=== PATIENT | female | born 1955 | race Caucasian/White ===

== ENCOUNTER 2017-05-01 09:28 | Day surgery (SDC) | payer BC ==
[2017-05-01] MEDS ORDERED: LIDOCAINE 2% MDV (20MG/ML) 20ML VIAL IV ONE (09:29)
[2017-05-01] MEDS ORDERED: PROPOFOL 10 MG/ML VIAL IV ONE (09:29)
[2017-05-01] MEDS ORDERED: MIDAZOLAM HCL 2MG/2ML VIAL IV ONE (09:29)
--- NOTE | 2017-05-01 13:10 | Operative Note ---
DATE OF SURGERY: 05/01/2017 OPERATION: COLONOSCOPY with cold snare and cold forceps polypectomies, and hemoclip application. PREOPERATIVE DIAGNOSIS: Screening. POSTOPERATIVE DIAGNOSES: 1. [id number] sigmoid diverticulosis. 2. Hemorrhoids. 3. Colon polyps. PROCEDURE: After informed consent was obtained from the patient, she was placed in the left lateral decubitus position in the endoscopy suite, sedated and monitored by the department of anesthesia. Digital rectal exam revealed external hemorrhoids that were non-thrombosed. A well-lubricated [id number] colonoscope was inserted into the rectum and gently advanced through a severely tortuous sigmoid colon which demonstrated nfhuxoyi-[id number] diverticular changes. The colonoscope was then gently advanced requiring transabdominal pressure to intubate the cecal cap. The cecum was unremarkable. Preparation quality was good. The ileocecal valve and appendiceal orifice were identified. In the ascending colon, there were 2 polyps, one 5 mm in diameter quite sessile removed with a cold snare, and hemoclip was applied to the site for closure purposes. There was another 6-7 mm sessile polyp removed in piecemeal fashion with a cold snare. Minimal bleeding was noted at the site. Polyp was retrieved without incident. The remainder of the ascending colon, transverse colon, descending colon were unremarkable. The sigmoid colon revealed a 4 mm polyp which was partially removed with a cold forceps and removed with a cold snare as well. The remainder of the sigmoid colon again demonstrated diverticular changes. J-turn views of the anorectum revealed internal hemorrhoids. The endoscope was straightened, the rectal ampulla deflated, and the endoscope was removed. RECOMMENDATIONS: I would suggest the patient follow a high-fiber diet and use a fiber supplement. She will require repeat exam in 3-5 years pending tissue histology. As always, thank you for allowing me to participate in the healthcare of your patients. CC: KANDIS OSUNA MD, FACP MTDD
== END 2017-05-01 10:50 | disposition home or self-care (01) ==
LOC: HOP 09:28
PROVIDERS: ATTEND Internal Medicine Gastroenterology
DX: Z12.11 Encounter for screening for malignant neoplasm of colon (principal); D12.2 Benign neoplasm of ascending colon; D12.5 Benign neoplasm of sigmoid colon; K57.30 Diverticulosis of large intestine without perforation or abscess without bleeding

== ENCOUNTER 2018-04-29 21:24 | Emergency (ER) | payer BC ==
--- NOTE | 2018-04-29 22:07 | Emergency Department Record ---
History of Present Illness - General Chief Complaint: Abdominal Pain Stated Complaint: FLANK/ABDOMINAL PAIN Time Seen by Provider: 04/29/18 22:06 Source: Patient Mode of Arrival: Ambulatory Limitations: No limitations - History of Present Illness Initial Comments: 62 yo female presents with abdominal pain. The onset was four days ago. She has decreased appetite. No vomiting or diarrhea. No dysuria. No back pain. She reports a history of prior colon infection. Her last colonoscopy was last year. It demonstrated moderate diverticulosis. Dr Medellin is her doctor. The pain is fairly constant and is located mostly in the lower abdomen. No back radiation. She reports, additionally, a vaginal discharge without bleeding that started today. MD Complaint: Abdominal pain Onset/Timin -: Days(s) Location: LLQ, RLQ Radiation: Back Migration to: Suprapubic Severity: Moderate Severity scale (1-10): 5 Quality: Cramping, Stabbing Consistency: Intermittent Improves With: Nothing Worsens With: Eating Associated Symptoms: Anorexia - Related Data LMP (females 10-50): Unknown Patient : No Previous Rx's Medication Instructions Recorded Ciprofloxacin HCl [Cipro] 500 mg PO Q12HR #14 tablet 04/30/18 Metronidazole [Flagyl] 500 mg PO TID #21 tablet 04/30/18 Allergies Allergy/AdvReac Type Severity Reaction Status Date / Time No Known Drug Allergies Allergy Verified 04/29/18 21:35 Travel Screening - Travel/Exposure Within Last 30 Days Have you traveled within the last 30 days?: No - Travel Symptoms Symptom Screening: None Review of Systems Constitutional: Denies: Chills, Fever, Malaise, Weakness Eyes: Denies: Eye discharge ENT: Denies: Congestion, Throat pain Respiratory: Denies: Cough, Dyspnea, Hemoptysis, Wheezes Cardiovascular: Denies: Chest pain, Palpitations, Syncope Endocrine: Denies: Fatigue, Polydipsia, Polyuria Gastrointestinal: Reports: Abdominal pain, Nausea. Denies: Constipation, Diarrhea, Hematemesis, Hematochezia Genitourinary: Denies: Dysuria, Frequency, Hematuria Musculoskeletal: Denies: Arthralgia, Back pain, Neck pain Skin: Denies: Bruising, Change in color, Rash Neurological: Denies: Headache Psychiatric: Denies: Anxiety Hematological/Lymphatic: Denies: Easy bleeding, Easy bruising Past Medical History - SOCIAL HISTORY Smoking Status: Current every day smoker Alcohol Use: Occasional Drug Use: None - RESPIRATORY Hx Respiratory Disorders: No - CARDIOVASCULAR Hx Cardio Disorders: Yes Comment:: high cholesterol - NEURO Hx Neuro Disorders: No - GI Hx GI Disorders: No - Hx Genitourinary Disorders: Yes Hx Kidney Stones: Yes - ENDOCRINE Hx Endocrine Disorders: No - MUSCULOSKELETAL Hx Musculoskeletal Disorders: No - PSYCH Hx Psych Problems: No - HEMATOLOGY/ONCOLOGY Hx Hematology/Oncology Disorders: No Family Medical History Any Significant Family History?: Yes Hx Diabetes: Mother Hx Heart Disease: Father Physical Exam - General General Appearance: Alert, Oriented x3, Cooperative, No acute distress Limitations: No limitations - Head Head exam: Atraumatic, Normal inspection - Eye Eye exam: Normal appearance, PERRL. negative: Conjunctival injection, Scleral icterus - ENT ENT exam: Normal exam, Mucous membranes moist, Normal orophraynx Ear exam: Normal external inspection Nasal Exam: Normal inspection Mouth exam: Normal external inspection Teeth exam: Normal inspection Throat exam: Normal inspection - Neck Neck exam: Normal inspection - Respiratory Respiratory exam: Normal lung sounds bilaterally. negative: Accessory muscle use, Decreased breath sounds, Respiratory distress, Rhonchi, Stridor, Wheezes - Cardiovascular Cardiovascular Exam: Regular rate, Normal rhythm, Normal heart sounds - GI/Abdominal GI/Abdominal exam: Soft, Tenderness - Rectal Rectal exam: Deferred - exam: Vaginal discharge (thin light soriano discharge). negative: Abnormal external exam, Adnexal tenderness (L), Adnexal tenderness (R), Cervical discharge, cervical motion tenderness, Vaginal bleeding, Vaginal erythema - Extremities Extremities exam: Normal inspection, Full ROM, Normal capillary refill. negative: Tenderness - Back Back exam: Denies: CVA tenderness (R), CVA tenderness (L) - Neurological Neurological exam: Alert, Oriented X3. negative: Normal gait - Psychiatric Psychiatric exam: Normal affect, Normal mood. negative: Agitated, Anxious - Skin Skin exam: Dry, Intact, Normal color, Warm Course Vital Signs 04/29/18 21:38 Temperature 97.6 F Pulse Rate [ 96 H Pulse Ox Probe] Respiratory 16 Rate Blood Pressure 166/105 [Left Arm] Pulse Ox 96 - Reevaluation(s) Reevaluation #1: 04/29/18 23:00 The CBC was negative The CMP was without significant abnormalities The Lipase is normal The UA has trace LE, few WBC, and few bacteria. 04/29/18 23:43 WBC noted on the wet prep 04/30/18 00:[address] is pending The patient declined pain medication waiting for CT results. 04/30/18 00:54 The radiologist called. The patient has acute diverticulitis with likely fistula between the colon and the vagina. 04/30/18 01:11 The case was discussed with Dr Olson of general surgery. The CT, labs, and clinical condition were discussed. The patient clinically has very mild symptoms, she is eating and drinking, her pain does not require any intervention. He recommended follow up in the office or Friday. She will be discharged home on Cipro and Flagyl. She was sent with a copy of her CT scan. We discussed at length reason to return to the ED immediately for a recheck Medical Decision Making - Lab Data Result diagrams: 04/29/18 21:53 04/29/18 21:53 Disposition Disposition: Discharge Clinical Impression: Diverticulitis, Recto-vaginal fistula Disposition: Home, Self-Care Condition: (1) Good Instructions: Diverticulitis (ED) Additional Instructions: Call Dr Olson for the next available follow up appointment on or Friday Return to the ER for a recheck if worse, any new concerns or questions Take the prescriptions provided as directed Review this ER visit and the tests performed with your family doctor Prescriptions: Ciprofloxacin HCl [Cipro] 500 mg PO Q12HR #14 tablet Metronidazole [Flagyl] 500 mg PO TID #21 tablet Referrals: Philip Olson [DOCTOR OF OSTEOPATH] - [facility] [Provider Group] Forms: Patient Portal Access Time of Disposition: 00:56 Quality - Quality Measures Quality Measures: N/A - Blood Pressure Screening Does Patient Have Any of the Following: No Blood Pressure Classification: Hypertensive Reading Systolic Measurement: 152 Diastolic Measurement: 79 Screening for High Blood Pressure: < Pre-Hypertensive BP, F/U Documented > [ [id number]] Pre-Hypertensive Follow-up Interventions: Referral to alternative/primary care provider.
[2018-04-29] MEDS ORDERED: ONDANSETRON HCL IV 4 MG/2 ML VIAL IVP ONE (22:12)
[2018-04-29] MEDS ORDERED: 0.9 % SODIUM CHLORIDE 1,000 ML BAG IV ONE (22:12)
[2018-04-29 22:21] LABS: URINE APPEARANCE CLEAR; URINE BILIRUBIN NEGATIVE (NEGATIVE); URINE BLOOD NEGATIVE (NEGATIVE); URINE COLOR YELLOW; URINE GLUCOSE (UA) NEGATIVE (NEGATIVE); URINE KETONE NEGATIVE (NEGATIVE); URINE LEUKOCYTE ESTERASE SMALL (NEGATIVE); URINE NITRITE NEGATIVE (NEGATIVE); URINE PROTEIN NEGATIVE (NEGATIVE); URINE UROBILINOGEN 0.2 E.U./dL (0.20 - 1.00)
[2018-04-29 22:22] LABS: BASO % 0.6 % (0-6); EOS % 3.4 % (0-6); GRAN % 58.2 % (47-80); HEMOGLOBIN 14.6 gm/dl (11.6-16.0); LYMPH % 26.8 % (16-45); MEAN CELL VOLUME 91.9 fl (81-97); MEAN CORPUSCULAR HEMOGLOBIN 30.5 pg (27-33); MEAN CORPUSCULAR HGB CONC 33.2 g/dl (32-36); MEAN PLATELET VOLUME 8.3 fl (7.4-10.4); PLATELET COUNT 455 K/uL (130-400); RED BLOOD COUNT 4.79 M/uL (3.80-5.40); RED CELL DISTRIBUTION WIDTH 13.1 % (11.5-14.5); WHITE BLOOD COUNT W/O DIFF 6.7 K/uL (4.2-12.2)
[2018-04-29 22:31] LABS: URINE BACTERIA FEW; URINE EPITHELIAL CELLS 0 - 2 (FEW); URINE RBC 0 - 2 (NONE SEEN)
[2018-04-29 22:33] LABS: BLOOD UREA NITROGEN 8 mg/dL (8-23); CREATININE 0.5 mg/dL (0.5-0.9); EST GLOMERULAR FILTRATION RATE > 60 mL/min
[2018-04-29 22:34] LABS: LIPASE 14 U/L (13-60); TOTAL PROTEIN 7.5 g/dL (6.6-8.7)
[2018-04-29 22:36] LABS: GLUCOSE,RANDOM 92 mg/dL (74-109)
[2018-04-29 22:38] LABS: ALT/SGPT 14 U/L (<33); AST/SGOT 18 U/L (10.0-35.0)
[2018-04-29 22:39] LABS: ALB/GLOB RATIO 1.1 (1.1-1.8); ALKALINE PHOSPHATASE 93 U/L (45-87)
[2018-04-30] MEDS ORDERED: CIPROFLOXACIN LACTATE/D5W 400 MG/200 ML BAG IVPB ONE (00:55)
[2018-04-30] MEDS ORDERED: METRONIDAZOLE IVPB 500 MG/100 ML BAG IVPB ONE (00:55)
[2018-04-30] MEDS ORDERED: METRONIDAZOLE 250 MG TABLET PO ONE (01:07)
[2018-04-30] MEDS ORDERED: CIPROFLOXACIN HCL 500 MG TABLET PO ONE (01:07)
[2018-05-01 10:08] LABS: GC SPECIMEN TYPE Vaginal
== END 2018-04-30 01:20 | disposition home or self-care (01) ==
LOC: ER 21:24
DX: K57.92 Diverticulitis of intestine, part unspecified, without perforation or abscess without bleeding (principal); N82.3 Fistula of vagina to large intestine; F17.210 Nicotine dependence, cigarettes, uncomplicated
CPT/HCPCS: 99284 ×2; 83690; 85025; 80053; 81001; 74177; Q0111; Q9967; 87210; J7030